=== PATIENT | male | born 1975 | race Caucasian/White ===

== ENCOUNTER 2020-09-24 11:42 | Emergency (ER) | payer OTHER | END 2020-09-24 12:37 | disposition home or self-care (01) | LOC: JVIRT 11:42 | DX: Z11.59 Encounter for screening for other viral diseases (principal) | CPT/HCPCS: C9803; Q3014-GT; U0003 ==

== ENCOUNTER 2020-09-29 10:22 | Emergency (ER) | payer OTHER | END 2020-09-29 11:33 | disposition home or self-care (01) | LOC: JVIRT 10:22 | DX: Z11.59 Encounter for screening for other viral diseases (principal) | CPT/HCPCS: C9803; Q3014-GT; U0003 ==